=== PATIENT | female | born 1950 | race Hispanic/Latino ===

== ENCOUNTER → 2019-03-14 | Outpatient (CLI) | payer MEDICARE ==
[2019-03-14 11:27] LABS: CREATININE, SERUM 1.78 mg/dL (0.57-1.11)
--- NOTE | 2019-03-14 12:42 | Diagnostic Imaging Report ---
EXAMINATION: CT of the abdomen and pelvis without contrast. TECHNIQUE: Spiral CT images of the abdomen and pelvis were performed from the lung bases to the lesser trochanters. No intravenous contrast was given per referring physician request. Coronal and sagittal reformatted images were obtained. COMPARISON: None. CLINICAL HISTORY:Right upper quadrant abdominal pain DISCUSSION: ABSENCE OF INTRAVENOUS CONTRAST DECREASES SENSITIVITY FOR DETECTION OF FOCAL LESIONS AND VASCULAR PATHOLOGY. ABDOMEN/PELVIS: LOWER THORAX: Unremarkable. HEPATOBILIARY:No focal hepatic lesion or intrahepatic biliary ductal dilatation. The gallbladder is poorly visualized and may be collapsed or surgically absent. SPLEEN: No splenomegaly. PANCREAS: No focal masses or ductal dilatation. ADRENALS: No adrenal nodules. KIDNEYS/URETERS: Nonspecific bilateral perinephric fat stranding. Bilateral extrarenal pelves. Small exophytic hypoattenuating lesion projecting from the interpolar right kidney, average internal attenuation 10-15 Hounsfield units, compatible with a cyst. Multiple bilateral renal hilar calcifications are felt to be atherosclerotic in nature. No hydronephrosis. No gross solid mass lesion. PELVIC ORGANS/BLADDER: The urinary bladder is incompletely distended but otherwise unremarkable. Uterus is neutral in position with calcified arcuate arteries. No adnexal mass. PERITONEUM/RETROPERITONEUM: No ascites. No pneumoperitoneum. LYMPH NODES: No pelvic sidewall, retroperitoneal, or mesenteric lymphadenopathy. VESSELS: Limited evaluation without intravenous contrast. Diffuse calcified atherosclerotic plaque of the abdominal aorta, branch vessels, and iliac systems without aneurysmal dilatation. GI TRACT: The large bowel contains a large amount of gas and fecal material. Concentric narrowing of the ascending colon near the hepatic flexure likely relates to peristalsis. The appendix is normal. No small bowel dilatation to suggest obstruction. BONES AND SOFT TISSUES: No osseous destructive lesions. Healing fractures of the right lateral sixth and seventh ribs. IMPRESSION: No acute intra-abdominal or pelvic CT abnormalities. Healing segmental fractures of the right sixth and seventh ribs. Stenotic segment of the ascending colon is likely due to peristalsis in the absence of defined mass lesion or adjacent mesocolic stranding. However, direct visualization by colonoscopy should be considered if not recently performed to exclude presence of a mucosal lesion. Atherosclerotic vascular disease. Signed by: Dr. Jaquan Coker M.D. on 03/14/2019 12:39 PM
== END ==
LOC: CT 10:26 → EDBD 10:26
PROVIDERS: ATTEND Internal Medicine
DX: R10.9 Unspecified abdominal pain (principal)
CPT/HCPCS: 36415; 74176; 82565; 84520

== ENCOUNTER → 2019-07-02 | Day surgery (SDC) | payer MEDICARE ==
[2019-06-27 13:09] LABS: BASOPHILS % 0.1 % (0.0-1.0); EOSINOPHILS # (AUTO) 0.2 (0.0-0.4); HEMATOCRIT 40.1 % (34.2-44.1); HEMOGLOBIN 12.9 g/dL (12.0-16.0); LYMPHOCYTES # (AUTO) 3.9 (1.0-3.2); LYMPHOCYTES % 41.6 % (18.0-39.1); MEAN CORPUSCULAR HEMOGLOBIN 30.8 pg (28-32); MEAN CORPUSCULAR HGB CONC 32.2 g/dL (31-35); MEAN CORPUSCULAR VOLUME 95.7 fL (81-99); MONOCYTES # (AUTO) 0.4 (0.2-0.8); MONOCYTES % 4.5 % (4.4-11.3); NEUTROPHILS # (AUTO) 4.8 (2.1-6.9); NEUTROPHILS % 51.6 % (38.7-80.0); PLATELET COUNT 272 x10e3/uL (140-360); RED BLOOD COUNT 4.19 x10e6/uL (3.6-5.1); RED CELL DISTRIBUTION WIDTH 11.5 % (11.7-14.4)
[~2019-07-02] MED LIST: ALENDRONATE SOD70 MG PO; ATORVASTATIN PO; FENTANYL CITRATE/PF 100MCG/2 ML INJ ONE; GLUCAGON FOR INJ 1 MG VIAL ONE; HYOSCYAMINE 0.125 MG TAB ONE; LEVOTHYROXINE50 MCG PO; LOSARTAN-HCTZ1 EAC1 PO; MIDAZOLAM HCL 2 MG/2 ML VIAL ONE; PROPOFOL IV EMULSION 10 MG/ML 50 ML VIAL ONE
--- OUTSIDE RECORDS SUMMARY | 2019-07-02 09:11 | XMS REPORT ---
Author Author [facility] Address Unknown Phone Unavailable Care Team Providers Care Perinatal Nurse Name Role Phone Lindy DONALDSON Unavailable Unavailable Problems This patient has no known problems. Allergies, Adverse Reactions, Alerts This patient has no known allergies or adverse reactions. Medications This patient has no known medications. Results Test Description Test Time Test Comments Text Results Atomic Results Result Comments CT ABDOMEN/PELVIS WO 2019-03-14 12:21:00 [place] [address] Patient Name: ALYCIA YU MR #: [id number] : 1950 Age/Sex: 68/F Req #: [id number] Adm Physician: Ordered by: HAM DONALDSON MD Report #: [id number] Location: CT Room/Bed: Procedure: [id number] CT/CT ABDOMEN/PELVIS WO Exam Date: 03/14/19 Exam Time: 1155 REPORT STATUS: Signed EXAMINATION: CT of the abdomen and pelvis without cont rast. TECHNIQUE: Spiral CT images of the abdomen and pelvis were performed from the lung bases to the lesser trochanters. No intravenous contrast was given per referring physician request. Coronal and sagittal reformatted images were obtained. COMPARISON: None. CLINICAL HISTORY:Right upper quadrant abdominal pain DISCUSSION: ABSENCE OF INTRAVENOUS CONTRAST DECREASES SENSITIVITY FOR DETECTION OF FOCAL LESIONS AND VASCULAR PATHOLOGY. ABDOMEN/PELVIS: LOWER THORAX: Unremarkable. HEPATOBILIARY:No focal hepatic lesion or intrahepatic biliary ductal dilatation. The gallbladder is poorly visualized and may be collapsed or surgically absent. SPLEEN: No splenomegaly. PANCREAS: No focal masses or ductal dilatation. ADRENALS: No adrenal nodules. KIDNEYS/URETERS: Nonspecific bilateral perinephric fat stranding. Bilateral extrarenal pelves. Small exophytic hypoattenuating lesion projecting from the interpolar right kidney, average i nternal attenuation 10-15 Hounsfield units, compatible with a cyst. Multiple bilateral renal hilar calcifications are felt to be atherosclerotic in nature. No hydronephrosis. No gross solid mass lesion. PELVIC ORGANS/BLADDER: The urinary bladder is incompletely distended but otherwise unremarkable. Uterus is neutral in position with calcified arcuate arteries. No adnexal mass. PERITONEUM/RETROPERITONEUM: No ascites. No pneumoperitoneum. LYMPH NODES: No pelvic sidewall, retroperitoneal, or mesenteric lymphadenopathy. VESSELS: Limited evaluation without intravenous contrast. Diffuse calcified atherosclerotic plaque of the abdominal aorta, branch vessels, and iliac systems without aneurysmal dilatation. GI TRACT: The large bowel contains a large amount of gas and fecal material. Concentric narrowing of the ascending colon near the hepatic flexure likely relates to peristalsis. The appendix is normal. No small bowel dilatation to suggest obstruction. BONES AND SOFT TISSUES: No osseous destructive lesions. Healing fractures of the right lateral sixth and seventh ribs. IMPRESSION: No acute intra-abdominal or pelvic CT abnormalities. Healing segmental fractures of the right sixth and seventh ribs. Stenotic segment of the ascending colon is likely due to peristalsis in the absence of defined mass lesion or adjacent mesocolic stranding. However, direct visualization by colonoscopy should be considered if not recently performed to exclude presence of a mucosal lesion. Atherosclerotic vascular disease. Signed by: Dr. Bassem Crawford M.D. on 03/14/2019 12:39 PM Dictated By: BASSEM CRAWFORD MD [id number] Transcribed By: FRANCISCO on 03/14/19 1239 COPY TO: HAM DONALDSON MD
[2019-07-02 11:35] VITALS: BP 127/60
--- NOTE | 2019-07-02 17:32 | Operative Report ---
DATE OF PROCEDURE: 07/02/2019 SURGEON: Garrett Seo MD PROCEDURES: EGD with biopsies and colonoscopy with biopsies. INDICATIONS FOR EGD: Dyspepsia. INDICATIONS FOR COLONOSCOPY: Colorectal cancer screening, history of bright red blood per rectum. MEDICATIONS: The patient was done under MAC, please see anesthesiologist's note. PROCEDURE IN DETAIL: With the patient in left lateral decubitus position, the flexible fiberoptic Olympus gastroscope was introduced into the esophagus under direct visualization without any difficulty. The esophagus appeared to be within normal limits. The scope was then advanced with ease into the stomach. Mucosa overlying the body revealed some patchy areas of somewhat atrophic mucosa and biopsies were obtained to rule out atrophic gastritis. The mucosa overlying the antrum revealed some diffuse erythema and low-grade to moderate edema, and biopsies were obtained and sent to stain for H. pylori. The pylorus was of normal contour and shape, it was intubated with ease and the scope was advanced with ease all the way to the second portion of the duodenum. Biopsies were obtained from the proximal, second portion and duodenal bulb. The scope was then withdrawn back into the stomach and retroflexed, mucosa overlying the fundus and the cardia appeared to be within normal limits. The scope was then straightened out, it was subsequently withdrawn, and the patient tolerated the procedure well. IMPRESSION: 1. Normal esophagus. 2. Rule out atrophic gastritis, body biopsies obtained. 3. Rule out sprue. PLAN: Follow up histology. Initiate Protonix 40 mg one p.o. q.a.m. before meals. The patient was then turned around and after adequate lubrication of the anal canal, a flexible fiberoptic Olympus colonoscope was inserted into the rectum with ease and advanced all the way to the cecum. Moderate amount of retained fecal material was noted in the cecum and the proximal ascending colon. The rest of the ascending colon, transverse, and descending appeared to be within normal limits. There was some diffuse intense erythema and low-grade to moderate edema noted in the sigmoid and the rectum, and biopsies were obtained. The scope was then retroflexed into the distal rectum and moderate-sized internal hemorrhoids were noted, none of which was actively bleeding. The scope was then straightened out, it was subsequently withdrawn and the patient tolerated the procedure well. IMPRESSION: 1. Suboptimal prep, right colon. 2. Proctosigmoiditis, mild. 3. Internal hemorrhoids, none actively bleeding. PLAN: Follow up histology. Initiate Visbiome one p.o. b.i.d. The patient will need a followup colonoscopy after a better prep to visualize the right colon optimally. MD RUI Ceballos/SHERLYNL /[id number] cc: Ursula Silva MD
== END | disposition home or self-care (01) ==
LOC: OR 08:55
PROVIDERS: ATTEND Internal Medicine Gastroenterology
DX: D64.9 Anemia, unspecified (principal); K29.50 Unspecified chronic gastritis without bleeding; K63.89 Other specified diseases of intestine; K31.89 Other diseases of stomach and duodenum; K59.00 Constipation, unspecified; K64.8 Other hemorrhoids; K85.90 Acute pancreatitis without necrosis or infection, unspecified; E78.00 Pure hypercholesterolemia, unspecified; E11.9 Type 2 diabetes mellitus without complications; E03.9 Hypothyroidism, unspecified; I10 Essential (primary) hypertension; Z01.810 Encounter for preprocedural cardiovascular examination; Z01.812 Encounter for preprocedural laboratory examination
CPT/HCPCS: 36415 ×2; 43239; 45380; 82948; 85025; 88305; 88312; 88342; 93005; J1610; J2250; J2704; J3010; 45378